=== PATIENT | female | born 1970 | race Caucasian/White ===

== ENCOUNTER 2023-06-29 05:41 | Day surgery (SDC) | payer BC, OTHER ==
[2023-06-22 16:31] LABS: BASOPHILS # (AUTO) 0.1 X10'3 (0-0.2); BASOPHILS % (AUTO) 0.8 % (0-1); EOSINOPHILS # (AUTO) 0.2 X10'3 (0-0.9); EOSINOPHILS % (AUTO) 1.3 % (0-6); LYMPHOCYTES # (AUTO) 2.5 X10'3 (1.1-4.8); LYMPHOCYTES % (AUTO) 21.2 % (21-51); MEAN CORPUSCULAR HEMOGLOBIN 30.5 PG (27.0-31.0); MEAN CORPUSCULAR VOLUME 92.5 FL (78-98); MEAN PLATELET VOLUME 9.6 FL (7.4-10.4); MONOCYTES # (AUTO) 0.8 X10'3 (0-0.9); MONOCYTES % (AUTO) 6.8 % (2-12); NEUTROPHILS # (AUTO) 8.3 X10'3 (1.8-7.7); NEUTROPHILS % (AUTO) 69.9 % (42-75); PRE OP HEMATOCRIT 42.5 % (35.0-45.0); PRE OP PLATELET COUNT 349 X10'3 (140-440); PRE OP WHITE BLOOD COUNT 11.8 10'3 (4.8-10.8); RED BLOOD COUNT 4.59 X10'6 (4.20-5.60); RED CELL DISTRIBUTION WIDTH 14.1 % (11.5-14.5)
[2023-06-22 16:48] LABS: ALBUMIN 3.7 G/DL (3.4-5.0); ALBUMIN/GLOBULIN RATIO 0.8 (1.1-1.5); ALKALINE PHOSPHATASE 92 IU/L (46-116); BLOOD UREA NITROGEN 18 MG/DL (7-18); BUN/CREATININE RATIO 17.8 (10.0-20.0); CALCIUM 10.4 MG/DL (8.5-10.1); CHLORIDE 100 MMOL/L (99-107); CREATININE 1.01 MG/DL (0.40-0.90); PRE OP ALT 54 U/L (30-65); PRE OP ANION GAP 10 (8-16); PRE OP AST 40 U/L (10-37); PRE OP BILIRUB, TOTAL 0.3 MG/DL (0.0-1.0); PRE OP GLUCOSE 176 MG/DL (70-104); PRE OP SODIUM 136 MMOL/L (135-145); TOTAL CARBON DIOXIDE 26.1 MMOL/L (24-32); TOTAL PROTEIN 8.3 G/DL (6.4-8.2); eGFR 58 ML/MIN
[2023-06-22 17:06] LABS: PRE OP POTASSIUM 4.5 MMOL/L (3.4-5.1)
[~2023-06-29] VITALS: Ht 165.1 cm; Wt 127.0 kg
[~2023-06-29 05:41] MED LIST: ALOG25TA PO; CITA40TA30 PO; LISI10TA27 PO; LORA10CA PO; METF-900 PO; OMEP20CA16 PO; SEMA0.258 SQ; VIT D; ceFAZolin inj. 3,000 MG in normal saline 100ml IV soln 100 ML IV ONE; famotidine 20mg tablet PO ONE; ringers solution, lacted 1,000 ML IV SCH
[2023-06-29 06:23] VITALS: BP 139/88; PULSE 76; RESP 15; TEMP 100; O2SAT 100; O2SAT 99
[2023-06-29] MEDS ORDERED: BUPIVAcaine/PF 2.5mg/ml (0.25%) 10ml vial ONE (06:42)
[2023-06-29] MEDS ORDERED: BUPIVAcaine/PF 2.5mg/ml (0.25%) 10ml vial IJ ONE (07:30)
[2023-06-29] MEDS ORDERED: morphine 2 MG/ML inj. syringe IV PRN (07:45)
[2023-06-29] MEDS ORDERED: labetalol 20mg/4ml (5mg/ml) syringe IV PRN (07:45)
[2023-06-29] MEDS ORDERED: ringers solution, lacted 1,000 ML IV SCH (07:45)
[2023-06-29] MEDS ORDERED: hydrALAZINE 20mg/ml inj. IV PRN (07:45)
[2023-06-29] MEDS ORDERED: morphine 4 MG/ML inj SYRINge IV PRN (07:45)
[2023-06-29] MEDS ORDERED: ondansetron/PF 4mg/2ml inj IV PRN (07:45)
[2023-06-29] MEDS ORDERED: MIDAZolam 1 MG/ML 5ML VIAL ONE (07:54)
[2023-06-29] MEDS ORDERED: fentaNYL/PF 50MCG/1 ML 2ML syringe ONE (07:54)
[2023-06-29] MEDS ORDERED: LIDOcaine 0.5% (5mg/ml) 50ml vial ONE (07:55)
[2023-06-29 08:25] VITALS: BP 131/72; PULSE 81; RESP 16; O2SAT 96
--- NOTE | 2023-06-29 08:25 | NUR ---
Received from OR via [facility], accompanied by Anesthesiologist and report given by GEMINI Anesthesiologist. PATIENT ALERT & AWAKE, DENIES PAIN, V/S WNL, PIV 20G TO RIGHT HAND, LEFT WRIST DRESSING C/D/I. ICE AND ELEVATED LUE. Addendum: 06/29/23 at 0844 by Chace Baez RN Amended: Links added.
[2023-06-29 08:40] VITALS: BP 123/72; PULSE 76; RESP 16; O2SAT 92
[2023-06-29 08:50] VITALS: BP 121/69; PULSE 74; RESP 15; O2SAT 92
[2023-06-29 09:00] VITALS: BP 123/82; PULSE 75; RESP 19; O2SAT 94
--- NOTE | 2023-06-29 09:05 | NUR ---
ALL DISCHARGE CRITERIA HAS BEEN MET. VSS, PAIN AT A TOLERABLE LEVEL, ABLE TO SAFELY AMBULATE AND TRANSFER SELF. IV TAKEN OUT WITHOUT ANY COMPLICATIONS. ALL DISCHARGE INSTRUCTIONS COVERED WITH PATIENT AND ALL QUESTIONS ANSWERED. PATIENT TAKEN OUT VIA WHEELCHAIR WITH ALL BELONGINGS TO PERSONAL VEHICLE WHERE FAMILY DROVE PATIENT HOME. Addendum: 06/29/23 at 0916 by Chace Baez RN Amended: Links added.
== END 2023-06-29 09:05 | disposition home or self-care (01) ==
LOC: PAS 05:41
PROVIDERS: ATTEND Orthopaedic Surgery Hand Surgery
DX: G56.02 Carpal tunnel syndrome, left upper limb (principal); E11.9 Type 2 diabetes mellitus without complications; I10 Essential (primary) hypertension; G47.30 Sleep apnea, unspecified; F32.A Depression, unspecified; K21.9 Gastro-esophageal reflux disease without esophagitis; E66.01 Morbid (severe) obesity due to excess calories; Z68.42 Body mass index [BMI] 45.0-49.9, adult; Z79.84 Long term (current) use of oral hypoglycemic drugs; Z79.899 Other long term (current) drug therapy; Z72.89 Other problems related to lifestyle
CPT/HCPCS: 29848; 36415; 80053; 82948; 85025; 93005; J0690; J2250; J3010; J3490; J7030; J7120; Z7506; Z7512; A4215; A7000

== ENCOUNTER 2023-08-24 06:38 | Day surgery (SDC) | payer BC, OTHER ==
[2023-08-20 15:26] LABS: BASOPHILS % (AUTO) 0.6 % (0-1); EOSINOPHILS # (AUTO) 0.2 X10'3 (0-0.9); EOSINOPHILS % (AUTO) 2.1 % (0-6); HEMATOCRIT 38.5 % (35.0-45.0); HEMOGLOBIN 12.7 g/dl (12.0-16.0); LYMPHOCYTES # (AUTO) 2.6 X10'3 (1.1-4.8); LYMPHOCYTES % (AUTO) 30.5 % (21-51); MEAN CORPUSCULAR HEMOGLOBIN 30.7 PG (27.0-31.0); MEAN CORPUSCULAR HGB CONC 32.9 g/dL (33.0-36.5); MEAN CORPUSCULAR VOLUME 93.4 FL (78-98); MEAN PLATELET VOLUME 9.1 FL (7.4-10.4); MONOCYTES # (AUTO) 0.7 X10'3 (0-0.9); MONOCYTES % (AUTO) 8.2 % (2-12); NEUTROPHILS % (AUTO) 58.6 % (42-75); PLATELET COUNT 279 X10'3 (140-440); RED BLOOD COUNT 4.12 X10'6 (4.20-5.60); RED CELL DISTRIBUTION WIDTH 13.9 % (11.5-14.5); WHITE BLOOD COUNT 8.5 X10'3 (4.5-11.0)
[2023-08-20 15:41] LABS: ALANINE AMINOTRANSFERASE 35 U/L (12-78); ALBUMIN 3.4 G/DL (3.4-5.0); ALBUMIN/GLOBULIN RATIO 0.8 (1.1-1.5); ALKALINE PHOSPHATASE 85 IU/L (46-116); ANION GAP 6 (8-16); ASPARTATE AMINO TRANSFERASE 28 U/L (10-37); BILIRUBIN,TOTAL 0.2 MG/DL (0.1-1.0); BLOOD UREA NITROGEN 11 MG/DL (7-18); BUN/CREATININE RATIO 14.5 (10.0-20.0); CALCIUM 9.1 MG/DL (8.5-10.1); CHLORIDE 103 MMOL/L (99-107); CREATININE 0.76 MG/DL (0.40-0.90); GLUCOSE 109 MG/DL (70-104); POTASSIUM 4.3 MMOL/L (3.5-5.1); SODIUM 139 MMOL/L (135-145); TOTAL PROTEIN 7.8 G/DL (6.4-8.2); eGFR 80 ML/MIN
[2023-08-24] VITALS (8 sets, daily range): BP systolic 98–129; BP diastolic 56–77; PULSE 66–77; RESP 14–18; TEMP 98.4; O2SAT 91–98
[~2023-08-24] VITALS: Ht 162.6 cm; Wt 126.4 kg
[2023-08-24] MEDS ORDERED: BUPIVAcaine/PF 2.5mg/ml (0.25%) 10ml vial ONE (06:43)
[2023-08-24] MEDS ORDERED: midazolam 1 mg/ML 2ml injection ONE (08:31)
[2023-08-24] MEDS ORDERED: fentaNYL/PF 50MCG/1 ML 2ML syringe ONE (08:31)
[2023-08-24] MEDS ORDERED: LIDOcaine 2% (20mg/ml) 5ml vial SQ ONE (08:41)
[2023-08-24] MEDS ORDERED: propofol inj 20 ML IV ONE (08:50)
--- NOTE | 2023-08-24 08:54 | NUR ---
Received from OR via [facility], accompanied by Anesthesiologist and report given by ELIAS Anesthesiologist. PATIENT WAKING UP, COMPLAINING OF PAIN IN R HAND- WILL MEDICATE., V/S WNL, PIV 20G TO L HAND, RIGHT WRIST DRESSING CDI. ICE AND ELEVATED RUE. Addendum: 08/24/23 at 0834 by Chace Baez RN Amended: Links added.
[2023-08-24] MEDS ORDERED: morphine 4 MG/ML inj SYRINge IV PRN (09:05)
[2023-08-24] MEDS ORDERED: proCHLORperazine 10 MG/2 ml inj IV PRN (09:05)
[2023-08-24] MEDS ORDERED: meperidine/PF 25mg/ml syringe IV PRN ×3 (09:05)
[2023-08-24] MEDS ORDERED: ringers solution, lacted 1,000 ML IV SCH (09:05)
[2023-08-24] MEDS ORDERED: morphine 2 MG/ML inj. syringe IV PRN (09:05)
[2023-08-24] MEDS ORDERED: ondansetron/PF 4mg/2ml inj IV PRN (09:05)
--- NOTE | 2023-08-24 09:54 | NUR ---
PATIENT A&OX4, DENIES PAIN, V/S WNL, SCD OFF, 20G PIV TO L HAND D/C, RIGHT WRIST DRESSING CDI. ICE AND ELEVATED RUE. I HAVE REVIEWED D/C INSTRUCTIONS WITH PATIENT and they have verbalized understanding patient d/c home with all belongings and family gave transport home. Addendum: 08/24/23 at 1014 by Chace Baez RN Amended: Links added.
== END 2023-08-24 09:54 | disposition home or self-care (01) ==
LOC: PAS 06:38
PROVIDERS: ATTEND Orthopaedic Surgery Hand Surgery
DX: G56.01 Carpal tunnel syndrome, right upper limb (principal); E11.9 Type 2 diabetes mellitus without complications; E66.9 Obesity, unspecified; G47.30 Sleep apnea, unspecified; Z79.2 Long term (current) use of antibiotics; Z79.84 Long term (current) use of oral hypoglycemic drugs; Z79.899 Other long term (current) drug therapy; Z68.42 Body mass index [BMI] 45.0-49.9, adult
CPT/HCPCS: 29848; 36415; 80053; 82948; 85025; J0690; J2175; J2250; J2704; J3010; J3490; J7030; J7120; Z7506; Z7512; A4215; A6449; A7000